=== PATIENT | male | born 1980 | race Caucasian/White ===

== ENCOUNTER 2017-04-21 12:08 | Emergency (ER) | payer MEDICAID ==
[~2017-04-21] VITALS: Ht 170.2 cm; Wt 95.7 kg
[2017-04-21 12:12] VITALS: Ht 170.2 cm; Wt 95.7 kg
[2017-04-21 14:27] VITALS: BP 154/90
== END 2017-04-21 14:27 | disposition home or self-care (01) ==
LOC: ED 12:08
DX: F10.239 Alcohol dependence with withdrawal, unspecified (principal)